=== PATIENT | female | born 1965 | race African-American/Black ===

== ENCOUNTER 2019-03-19 07:41 | Day surgery (SDC) | payer BC ==
[~2019-03-19] VITALS: Ht 170.2 cm; Wt 95.3 kg
[~2019-03-19 07:41] MED LIST: ASPI-1393 PO; ATOR80TA PO; B12/1TAB PO; BIOT10TA2 PO; CLOP75TA4 PO; COR25 PO; LEVVL SQ; LISI-186 PO; SITA100T11 PO; UBID100C12 PO
[2019-03-19 08:09] LABS: UCG SCREEN NEGATIVE
[2019-03-19] MEDS ORDERED: SODIUM CHLORIDE 0.9% 1,000 ML IV SCH (08:30)
[2019-03-19] MEDS ORDERED: MIDAZOLAM HCL 2 MG/2 ML VIAL ONE (09:27)
[2019-03-19] MEDS ORDERED: ROCURONIUM BROMIDE 10MG/ML VIAL 5ML IV ONE (09:27)
[2019-03-19] MEDS ORDERED: NEOSTIGMINE METHYLSULFATE 1MG/ML 10 ML VIAL ONE (09:27)
[2019-03-19] MEDS ORDERED: FENTANYL CITRATE/PF 50MCG/ML 2ML VIAL ONE (09:27)
[2019-03-19] MEDS ORDERED: PROPOFOL 200MG/20ML VIAL IV ONE (09:27)
[2019-03-19] MEDS ORDERED: GLYCOPYRROLATE 0.2 MG/ML 2ML VIAL ONE ×2 (09:28→09:52)
[2019-03-19] MEDS ORDERED: LIDOCAINE HCL/PF 1% 10 MG/ML 5ML VIAL ONE (09:28)
[2019-03-19] MEDS ORDERED: CEFAZOLIN SODIUM 1000MG/VIAL ONE (09:33)
[2019-03-19] MEDS ORDERED: SODIUM CHLORIDE 0.9% 10ML VIAL ONE (09:33)
[2019-03-19] MEDS ORDERED: MULT-1146 PO (10:07)
[2019-03-19] MEDS ORDERED: PRIMROSE PO (10:07)
[2019-03-19] MEDS ORDERED: VITAMIN D (10:07)
[2019-03-19] MEDS ORDERED: IRON PO (10:07)
[2019-03-19] MEDS ORDERED: MEPERIDINE HCL/PF 25MG/ML CPJ IV PRN (11:00)
== END 2019-03-19 12:00 | disposition home or self-care (01) ==
LOC: OR 07:41
PROVIDERS: ATTEND Obstetrics & Gynecology Obstetrics
DX: N92.6 Irregular menstruation, unspecified (principal); E11.9 Type 2 diabetes mellitus without complications; I25.10 Atherosclerotic heart disease of native coronary artery without angina pectoris; I25.2 Old myocardial infarction; E78.00 Pure hypercholesterolemia, unspecified; Z88.2 Allergy status to sulfonamides; Z88.8 Allergy status to other drugs, medicaments and biological substances; Z79.82 Long term (current) use of aspirin; Z79.899 Other long term (current) drug therapy; Z79.4 Long term (current) use of insulin; Z98.890 Other specified postprocedural states; Z83.3 Family history of diabetes mellitus; Z82.49 Family history of ischemic heart disease and other diseases of the circulatory system
CPT/HCPCS: 58558; 81025; 82962; 88305; J0690; J2250; J2704; J2710; J3010; J3490